=== PATIENT | male | born 1960 | race Caucasian/White ===

== ENCOUNTER → 2019-04-19 | Outpatient (CLI) | payer SELFPAY ==
[~2019-04-19] MED LIST: ASPIR-LOW81 MG PO; B121000 MCG/1 IM; METOPROLOL SR25 MG PO; MULTIPLE VITAMI1 TAB; PRILOSEC20 MG PO; VICODIN ES 7501 TAB PO; ZOCOR40 MG PO
== END | disposition home or self-care (01) ==
LOC: RESCLI 01:08
DX: I10 Essential (primary) hypertension (principal); K21.9 Gastro-esophageal reflux disease without esophagitis; E78.5 Hyperlipidemia, unspecified; G45.9 Transient cerebral ischemic attack, unspecified; Z68.33 Body mass index [BMI] 33.0-33.9, adult; Z79.899 Other long term (current) drug therapy

== ENCOUNTER 2020-09-25 12:09 | Observation (INO) | payer MEDICAID ==
[~2020-09-25] VITALS: Ht 180.3 cm; Wt 105.3 kg
[2020-09-25 12:24] VITALS: BP 130/75
[2020-09-25 12:27] LABS: BASO # 0.1 10*3/uL (0.0-0.1); BASO % 0.9 % (0.0-1.0); EOS # 0.3 10*3/uL (0.0-0.4); EOS % 3.4 % (1.0-4.0); HEMATOCRIT 39.5 % (42.0-52.0); LYMPH # 1.7 10*3/uL (1.3-4.4); LYMPH % 22.1 % (27.0-41.0); MEAN CELL VOLUME 90.2 fl (80.0-94.0); MEAN CORPUSCULAR HGB 30.8 pg (27.0-31.0); MEAN CORPUSCULAR HGB CONC 34.2 g/dl (33.0-37.0); MEAN PLATELET VOLUME 9.7 fl (9.6-12.3); MONO # 0.8 10*3/uL (0.1-1.0); MONO % 10.1 % (3.0-9.0); NEUT % 63.2 % (47.0-73.0); PLATELET COUNT AUTOMATED 267 10*3/uL (130-400); RED BLOOD COUNT 4.38 10*6/uL (4.50-5.90); RED CELL DISTRI WIDTH 13.2 % (0-14.5); WHITE BLOOD COUNT 7.9 10*3/uL (4.8-10.8)
[2020-09-25 12:30] VITALS: BP 130/75
[2020-09-25 12:39] LABS: ACT PARTIAL THROMBO TIME 25.3 SECONDS (20.0-32.1)
[2020-09-25 12:45] LABS: ALBUMIN 3.6 gm/dl (3.1-4.5); ALKALINE PHOSPHATASE 41 U/L (45-117); BUN 17 mg/dl (7-24); CHLORIDE 105 mmol/L (98-107); CREATININE 0.97 mg/dL (0.70-1.30); SGOT/AST 13 IU/L (3-35); SGPT/ALT 36 U/L (12-78); SODIUM 137 mmol/L (136-145); TOTAL PROTEIN 7.8 gm/dL (6.4-8.2)
[2020-09-25 12:47] LABS: LIPASE 141 U/L (73-393)
[2020-09-25 12:50] LABS: TROPONIN I < 0.015 ng/ml (<0.045)
[2020-09-25 14:51] VITALS: BP 125/80
[2020-09-25 15:00] VITALS: BP 140/93
[2020-09-25] MEDS ORDERED: FLAXSEED1000 MG PO (16:19)
[2020-09-25] MEDS ORDERED: FISH OIL 1,0001 EAC1 PO (16:19)
[2020-09-25 16:27] VITALS: BP 140/85
[2020-09-25 20:00] VITALS: BP 120/69
[2020-09-26] VITALS: BP 126/78
[2020-09-26 06:19] LABS: BASO # 0.1 10*3/uL (0.0-0.1); BASO % 1.1 % (0.0-1.0); EOS # 0.4 10*3/uL (0.0-0.4); EOS % 4.4 % (1.0-4.0); HEMATOCRIT 38.2 % (42.0-52.0); LYMPH # 2.6 10*3/uL (1.3-4.4); LYMPH % 31.8 % (27.0-41.0); MEAN CELL VOLUME 90.7 fl (80.0-94.0); MEAN CORPUSCULAR HGB 30.9 pg (27.0-31.0); MEAN PLATELET VOLUME 9.6 fl (9.6-12.3); MONO # 0.7 10*3/uL (0.1-1.0); MONO % 8.7 % (3.0-9.0); NEUT # 4.3 10*3/uL (2.3-7.9); NEUT % 53.8 % (47.0-73.0); PLATELET COUNT AUTOMATED 243 10*3/uL (130-400); RED BLOOD COUNT 4.21 10*6/uL (4.50-5.90); RED CELL DISTRI WIDTH 13.2 % (0-14.5)
[2020-09-26 06:32] LABS: BUN 18 mg/dl (7-24); CHLORIDE 105 mmol/L (98-107); CHOLESTEROL 198 mg/dL (<200); CREATININE 1.04 mg/dL (0.70-1.30); HDL CHOLESTEROL 29 mg/dl (40-60); LDL CHOLESTEROL 116 mg/dL (9-159); POTASSIUM 3.7 mmol/L (3.5-5.1); SODIUM 139 mmol/L (136-145); TRIGLYCERIDES 266 mg/dl (<150); VLDL CHOLESTEROL 53 mg/dL (6-40)
[2020-09-26 08:00] VITALS: BP 122/80; BP 130/70
[2020-09-26 12:00] VITALS: BP 135/80
[2020-09-26] MEDS ORDERED: ATORVASTATIN CA40 M1 PO (13:29)
== END 2020-09-26 15:46 | disposition home or self-care (01) ==
LOC: ED 12:09 → EDHOLD 14:39 → 4E 15:18
PROVIDERS: Emergency Medicine; Internal Medicine; ADMIT Student in an Organized Health Care Education/Training Program; ATTEND Student in an Organized Health Care Education/Training Program
DX: R07.89 Other chest pain (principal); D64.9 Anemia, unspecified; E83.41 Hypermagnesemia; I10 Essential (primary) hypertension; E78.5 Hyperlipidemia, unspecified; K21.9 Gastro-esophageal reflux disease without esophagitis; E66.9 Obesity, unspecified; Z68.32 Body mass index [BMI] 32.0-32.9, adult; Z86.73 Personal history of transient ischemic attack (TIA), and cerebral infarction without residual deficits; Z79.899 Other long term (current) drug therapy

== ENCOUNTER → 2022-03-03 | Outpatient (CLI) | payer MEDICAID ==
[~2022-03-03] MED LIST changes: +ATORVASTATIN CA40 M1 PO; +FISH OIL 1,0001 EAC1 PO; +FLAXSEED1000 MG PO
== END | disposition home or self-care (01) ==
LOC: RAD 10:55
PROVIDERS: ATTEND Nurse Practitioner Family
DX: R05.1 Acute cough (principal); R53.83 Other fatigue; R09.81 Nasal congestion; M25.50 Pain in unspecified joint; K44.9 Diaphragmatic hernia without obstruction or gangrene

== ENCOUNTER → 2022-07-08 | Outpatient (CLI) | payer MEDICAID | END | disposition home or self-care (01) | LOC: LAB 10:52 → RAD 10:52 | PROVIDERS: ATTEND Nurse Practitioner Family | DX: M47.817 Spondylosis without myelopathy or radiculopathy, lumbosacral region (principal); M47.812 Spondylosis without myelopathy or radiculopathy, cervical region; M50.322 Other cervical disc degeneration at C5-C6 level; M50.323 Other cervical disc degeneration at C6-C7 level ==

== ENCOUNTER → 2022-07-30 | Outpatient (CLI) | payer OTHER ==
[~2022-07-30] MED LIST changes: +ZESTORETIC 20-1 EACH PO
== END | disposition home or self-care (01) ==
LOC: CARD 07:51
PROVIDERS: ATTEND Nurse Practitioner Family
DX: I95.9 Hypotension, unspecified (principal); R00.1 Bradycardia, unspecified; R00.0 Tachycardia, unspecified; E86.0 Dehydration

== ENCOUNTER → 2022-09-02 | Outpatient (CLI) | payer OTHER | END | disposition home or self-care (01) | LOC: US 09-01 14:00 | PROVIDERS: ATTEND Nurse Practitioner Family | DX: I65.23 Occlusion and stenosis of bilateral carotid arteries (principal); Z86.73 Personal history of transient ischemic attack (TIA), and cerebral infarction without residual deficits ==

== ENCOUNTER → 2022-11-15 | Outpatient (CLI) | payer OTHER ==
[2022-11-15 07:48] LABS: BASO # 0.1 10*3/uL (0.0-0.1); BASO % 0.5 % (0.0-1.0); EOS # 0.3 10*3/uL (0.0-0.4); EOS % 2.8 % (1.0-4.0); HEMATOCRIT 40.2 % (42.0-52.0); LYMPH # 1.3 10*3/uL (1.3-4.4); LYMPH % 14.1 % (27.0-41.0); MEAN CELL VOLUME 88.7 fl (80.0-94.0); MEAN CORPUSCULAR HGB 30.5 pg (27.0-31.0); MEAN CORPUSCULAR HGB CONC 34.3 g/dl (33.0-37.0); MEAN PLATELET VOLUME 9.6 fl (9.6-12.3); MONO # 0.8 10*3/uL (0.1-1.0); MONO % 8.8 % (3.0-9.0); NEUT % 73.5 % (47.0-73.0); PLATELET COUNT AUTOMATED 261 10*3/uL (130-400); RED BLOOD COUNT 4.53 10*6/uL (4.50-5.90); RED CELL DISTRI WIDTH 12.9 % (0-14.5); WHITE BLOOD COUNT 9.5 10*3/uL (4.8-10.8)
[2022-11-15 08:12] LABS: ALKALINE PHOSPHATASE 40 U/L (46-116); BUN 15 mg/dl (9-23); CHLORIDE 103 mmol/L (98-107); CHOLESTEROL 131 mg/dL (<200); LDL CHOLESTEROL 68 mg/dL (9-159); POTASSIUM 3.5 mmol/L (3.4-5.1); SGPT/ALT 23 U/L (10-49); TOTAL PROTEIN 7.4 gm/dL (6.0-8.0); TRIGLYCERIDES 114 mg/dl (<150)
== END | disposition home or self-care (01) ==
LOC: LAB 07:07
PROVIDERS: Nurse Practitioner Family; ATTEND Urology
DX: I10 Essential (primary) hypertension (principal); Z87.898 Personal history of other specified conditions; Z82.49 Family history of ischemic heart disease and other diseases of the circulatory system

== ENCOUNTER → 2023-05-16 | Outpatient (CLI) | payer OTHER ==
[2023-05-16 07:15] LABS: BASO # 0.1 10*3/uL (0.0-0.1); BASO % 0.9 % (0.0-1.0); EOS # 0.3 10*3/uL (0.0-0.4); EOS % 4.8 % (1.0-4.0); HEMATOCRIT 40.9 % (42.0-52.0); LYMPH # 1.7 10*3/uL (1.3-4.4); LYMPH % 24.6 % (27.0-41.0); MEAN CELL VOLUME 90.7 fl (80.0-94.0); MEAN CORPUSCULAR HGB 31.3 pg (27.0-31.0); MEAN CORPUSCULAR HGB CONC 34.5 g/dl (33.0-37.0); MEAN PLATELET VOLUME 9.3 fl (9.6-12.3); MONO # 0.6 10*3/uL (0.1-1.0); MONO % 8.4 % (3.0-9.0); NEUT # 4.3 10*3/uL (2.3-7.9); NEUT % 61.2 % (47.0-73.0); PLATELET COUNT AUTOMATED 243 10*3/uL (130-400); RED BLOOD COUNT 4.51 10*6/uL (4.50-5.90); RED CELL DISTRI WIDTH 13.2 % (0-14.5); WHITE BLOOD COUNT 6.9 10*3/uL (4.8-10.8)
== END | disposition home or self-care (01) ==
LOC: LAB 01:19
PROVIDERS: ATTEND Nurse Practitioner Family
DX: I10 Essential (primary) hypertension (principal); E78.5 Hyperlipidemia, unspecified; R73.01 Impaired fasting glucose